=== PATIENT | female | born 2005 | race Caucasian/White ===

== ENCOUNTER 2024-01-25 17:07 | Emergency (ER) | payer BC ==
[2024-01-25 19:03] LABS: BHCG - Serum Negative (NEGATIVE); Pregs Control Background? CLEAR/WHITE (CLR/WHITE); Pregs Control Bar Appear? YES (CONTROL BAR)
[2024-01-25 19:09] LABS: Hematocrit 40.1 % (34.9-44.5); Hemoglobin 13.2 g/dL (12.0-15.5); Mean Corpuscular HGB CONC 32.9 g/dL (32.0-36.0); Mean Corpuscular Hemoglobin 26.3 pg (27.0-33.0); Mean Platelet Volume 10.1 fL (7.4-10.4); Platelet Count 209 10x3/uL (150-450); RBC Distribution Width 11.9 % (11.5-14.5); Red Blood Cell (RBC) Count 5.01 10x6/uL (3.90-5.03); White Blood Cell (WBC) Count 8.3 10x3/uL (3.5-10.5)
[2024-01-25 19:10] LABS: ALT (SGPT) 31 U/L (8-55); AST (SGOT) 39 U/L (5-30); Albumin 3.3 g/dL (3.5-5.0); Alkaline Phosphatase 43 U/L (40-100); Anion Gap 14 mmol/L (10-20); BUN (Urea Nitrogen) 7 mg/dL (8.4-21.0); Bilirubin, Total 0.2 mg/dL (0.2-1.2); Calc. Creatinine Clearance 0 mL/min (70-130); Carbon Dioxide 24 mmol/L (22-29); Chloride 102 mmol/L (98-107); Estimated GFR 97; Globulin 3.9 g/dL (2.4-3.5); Glucose 88 mg/dL (70-105); Lipase 25 U/L (8-78); Potassium 4.2 mmol/L (3.5-5.1); Protein, Total 7.2 g/dL (6.0-8.3); Sodium 136 mmol/L (136-145)
[2024-01-25] MEDS ORDERED: Ketorolac Tromethamine 30 MG (1 mL) VIAL ONE (19:12)
[2024-01-25 20:02] LABS: Bilirubin Neg (Negative); Blood, Urine 250 (Negative); Clarity Bloody (Clear); Glucose, Urine (Dipstick) Normal (Negative); Ketone, Urine Negative (Negative); Leukocyte 500 (Negative); Nitrite Negative (Negative); Protein, Urine (Dipstick) 100 mg/dl (Neg-Trace); Urobilinogen Normal mg/dL (Less than 2)
[2024-01-25 20:03] LABS: Band 1 % (5-11); Eosinophils 1 % (0-10); Reactive Lymphocytes 16 % (0-10)
[2024-01-25 20:05] LABS: RBC/HPF Greater than 50 HPF (0-3)
[2024-01-25 20:06] LABS: Bacteria/HPF 3+ HPF (None Seen); CAUTI Indications for Culture Pelvic or flank pain; Mucous/LPF 2+ LPF (<2+); Squamous Epithelial 0-3 HPF (0-3); WBC/HPF 21-50 HPF (0-3)
[2024-01-25 20:07] LABS: MDiff Complete? YES
[2024-01-25 20:08] LABS: Urine Culture Reflex Yes Yes
[2024-01-25 20:08] LABS: Lymphocytes 25 % (28-48); Monocytes 6 % (0-4)
[2024-01-25 20:09] LABS: Neutrophil 51 % (31-61)
[2024-01-25 20:10] LABS: Microcytosis SLIGHT = 6-15 cells (100X) (0-5/hpf); Platelet Adequacy Comment Appears Adequate
[2024-01-25] MEDS ORDERED: cefTRIAXone (ROCEPHIN) 2 GM VIAL ONE (20:34)
== END 2024-01-25 21:23 | disposition home or self-care (01) ==
LOC: CSHERS 17:07
DX: N10 Acute pyelonephritis (principal)
CPT/HCPCS: 36415; 71046; 74177; 80053; 81001; 83690; 84703; 85025; 87086; 87428; 96361; 96374; 96375; J0696; J1885